=== PATIENT | female | born 2000 | race Caucasian/White ===

== ENCOUNTER 2022-09-01 14:08 | Emergency (ER) | payer SELFPAY ==
[~2022-09-01] VITALS: Ht 160 cm; Wt 75.0 kg
[2022-09-01 14:16] VITALS: BP 119/85
[2022-09-01] MEDS ORDERED: PROP80CA59 PO (14:22)
[2022-09-01] MEDS ORDERED: LAM1 PO (14:22)
[2022-09-01] MEDS ORDERED: GABA-529 PO (14:22)
[2022-09-01] MEDS ORDERED: DESV100T6 PO (14:22)
[2022-09-01] MEDS ORDERED: ACETAMINOPHEN 500MG TABLET PO ONE (15:45)
== END 2022-09-01 17:30 | disposition home or self-care (01) ==
LOC: ER 14:08
DX: R51.9 Headache, unspecified (principal); H53.8 Other visual disturbances; F32.A Depression, unspecified; F41.9 Anxiety disorder, unspecified; Z90.49 Acquired absence of other specified parts of digestive tract
CPT/HCPCS: 81025; 99284